=== PATIENT | female | born 1980 | race African-American/Black ===

== ENCOUNTER 2017-10-22 02:27 | Emergency (ER) | payer BC ==
[~2017-10-22] VITALS: Ht 180.3 cm; Wt 127.0 kg
[2017-10-22] MEDS ORDERED: ACETAMINOPHEN 325MG TABLET PO ONE (06:45)
[2017-10-22 06:55] VITALS: BP 122/69
== END 2017-10-22 07:15 | disposition home or self-care (01) ==
LOC: ER 02:27
DX: O26.892 Other specified pregnancy related conditions, second trimester (principal); R51 Headache; O24.419 Gestational diabetes mellitus in pregnancy, unspecified control; Z98.84 Bariatric surgery status; Z3A.27 27 weeks gestation of pregnancy; V43.52XA Car driver injured in collision with other type car in traffic accident, initial encounter; Y93.89 Activity, other specified; Y92.488 Other paved roadways as the place of occurrence of the external cause
CPT/HCPCS: 99283; Z7610